=== PATIENT | female | born 2000 | race Caucasian/White ===

== ENCOUNTER 2019-04-04 18:58 | Emergency (ER) | payer BC, MEDICAID ==
[~2019-04-04] VITALS: Ht 157.5 cm; Wt 75.7 kg
[2019-04-04] MEDS ORDERED: methylPREDNISolone SOD SUCC 125 MG/2ML VIAL ONE (19:07)
[2019-04-04] MEDS ORDERED: EPINEPHRINE (1:1000) 1 MG/ML AMPUL ONE (19:08)
[2019-04-04] MEDS ORDERED: diphenhydrAMINE HCL 50 MG/ML VIAL ONE (19:08)
[2019-04-04] MEDS ORDERED: FAMOTIDINE/PF INJ 20 MG/2 ML VIAL IV ONE ×2 (19:09→19:30)
--- NOTE | 2019-04-04 19:15 | NUR ---
C/O THROAT DISCOMFORT, SOB X 1 HOUR, GENERALIZED HIVES SINCE YESTERDAY. PT UPPER SORBIAN SPEAKING, AT BS FOR TRANSLATION. PT AAOX4, DENIES CP, DIZZINESS, N/V AT THIS TIME. KINA HUDSON AT BS FOR EVAL. 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
--- NOTE | 2019-04-04 19:27 | NUR ---
MEDICATED ORDERED, PT YEMI WELL.
[2019-04-04] MEDS ORDERED: diphenhydrAMINE HCL 50 MG/ML VIAL IV ONE (19:30)
[2019-04-04] MEDS ORDERED: EPINEPHRINE (1:1000) MDV 30 MG/30ML VIAL SUBCUT ONE (19:30)
[2019-04-04] MEDS ORDERED: methylPREDNISolone SOD SUCC 125 MG/2ML VIAL IV ONE (19:30)
--- NOTE | 2019-04-04 19:49 | NUR ---
PT STS SLEEPY BUT FEELING A LOT BETTER, DENIES SOB, CP, N/V AT THIS TIME. WILL CONT TO MONITOR & AT BS.
--- NOTE | 2019-04-04 21:12 | NUR ---
Patient discharged to home in stable condition. Written and verbal after care instructions given . verbalizes understanding of instruction. IV removed. Catheter intact and site benign. Pressure and 4x4 applied to site. No bleeding noted.
[2019-04-04 21:13] VITALS: BP 125/71
== END 2019-04-04 21:18 | disposition home or self-care (01) ==
LOC: ER 18:58
DX: T78.2XXA Anaphylactic shock, unspecified, initial encounter (principal); L50.9 Urticaria, unspecified; F41.9 Anxiety disorder, unspecified; Z98.890 Other specified postprocedural states
CPT/HCPCS: 96372; 96374; 96375; 99283; J0171; J1200; J2930; J3490